=== PATIENT | female | born 1930 | race Asian ===

== ENCOUNTER 2019-01-15 22:16 | Observation (INO) | payer MEDICARE, OTHER ==
[2019-01-16 00:50] LABS: ADD MAN DIFF? NO
[2019-01-16 00:52] LABS: WHITE BLOOD COUNT 9.4 10^3/ul (4.8-10.8)
[2019-01-16 00:52] LABS: BASOPHIL # 0.1 10^3/ul (0.0-0.1); BASOPHILS % 0.7 % (0.0-2.0); EOSINOPHILS # 0.1 10^3/ul (0.0-0.5); HEMATOCRIT 36.8 % (37.0-47.0); HEMOGLOBIN 12.3 g/dl (12.0-16.0); LYMPHOCYTES # 3.6 10^3/ul (0.8-2.9); LYMPHOCYTES % 38.2 % (15.0-51.0); MEAN CORPUSCULAR HEMOGLOBIN 28.5 pg (29.0-33.0); MEAN CORPUSCULAR HGB CONC 33.4 g/dl (32.0-37.0); MEAN CORPUSCULAR VOLUME 85.2 fl (82.0-101.0); MEAN PLATELET VOLUME 10.6 fl (7.4-10.4); MONOCYTE # 0.6 10^3/ul (0.3-0.9); MONOCYTES % 6.7 % (0.0-11.0); NEUTROPHILS % 53.1 % (39.0-77.0); PLATELET COUNT 281 10^3/UL (140-415); RED BLOOD COUNT 4.32 10^6/ul (4.20-5.40)
[2019-01-16 01:17] LABS: ANION GAP 11 (5-13); BLOOD UREA NITROGEN 19 mg/dl (7-20); CALCIUM 9.6 mg/dl (8.4-10.2); CARBON DIOXIDE 26 mmol/L (21-31); CHLORIDE 100 mmol/L (97-110); CREATINE KINASE 83 IU/L (23-200); CREATININE 0.74 mg/dl (0.44-1.00); GLUCOSE 110 mg/dl (70-220); MAGNESIUM 1.9 mg/dl (1.7-2.5); POTASSIUM 4.3 mmol/L (3.5-5.1); SODIUM 137 mmol/L (135-144)
[2019-01-16 01:22] LABS: INR 0.84; PARTIAL THROMBOPLASTIN TIME 25.5 Sec (23.0-35.0); PROTIME 11.6 Sec (11.9-14.9); PT RATIO 0.9
[2019-01-16 01:29] LABS: TROPONIN-I < 0.012 ng/ml (0.000-0.120)
[2019-01-16 01:34] LABS: FREE THYROXINE INDEX (Calc) 2.85 ug/ml (0.65-3.89); T3 UPTAKE 33.9 % (23.5-40.5); T4 (THYROXINE) 8.4 ug/dl (5.5-11.0)
[2019-01-16] MEDS ORDERED: NACL 0.9% 3 ML SYG IV (08:00)
[2019-01-16] MEDS ORDERED: ACETAMINOPHEN 325 MG TAB PO (08:00)
[2019-01-16] MEDS ORDERED: NITROGLYCERIN (SL) 0.4 MG TAB SL (08:00)
[2019-01-16] MEDS ORDERED: ALBUTEROL/IPRATROPIUM (NEB) 3 ML AMP HHN (08:00)
[2019-01-16] MEDS: ASPIRIN (EC) 81 MG TAB PO (09:11)
[2019-01-16] MEDS: PANTOPRAZOLE (EC) 40 MG TAB PO (09:11)
[2019-01-16] MEDS: FERROUS SULFATE (EC) 325 MG TAB PO (09:11)
[2019-01-16] MEDS: CYANOCOBALAMIN 500 MCG TAB PO (09:11)
[2019-01-16] MEDS: LORATADINE 10 MG TAB PO (09:11)
[2019-01-16 09:35] LABS: CREATINE KINASE 81 IU/L (23-200)
[2019-01-16 09:46] LABS: CK INDEX 2.2
[2019-01-16 09:48] LABS: TROPONIN-I < 0.012 ng/ml (0.000-0.120)
[2019-01-16 10:16] LABS: CK-MB 1.76 ng/ml (0.0-2.4)
[2019-01-16] MEDS: BENAZEPRIL 20 MG TAB PO (12:56)
[2019-01-16] MEDS: metFORMIN (XR) 500 MG TAB PO ×2 (12:56→20:36)
[2019-01-16] MEDS ORDERED: LISINOPRIL 10 MG TAB PO (15:00)
[2019-01-16 15:14] LABS: CREATINE KINASE 82 IU/L (23-200)
[2019-01-16 15:25] LABS: CK INDEX 1.9; CK-MB 1.54 ng/ml (0.0-2.4); TROPONIN-I < 0.012 ng/ml (0.000-0.120)
[2019-01-16] MEDS: ATORVASTATIN 20 MG TAB PO (20:35)
[2019-01-17 06:57] LABS: ADD MAN DIFF? NO; BASOPHIL # 0.1 10^3/ul (0.0-0.1); BASOPHILS % 0.7 % (0.0-2.0); EOSINOPHILS # 0.2 10^3/ul (0.0-0.5); EOSINOPHILS % 1.8 % (0.0-7.0); HEMATOCRIT 40.2 % (37.0-47.0); HEMOGLOBIN 13.3 g/dl (12.0-16.0); LYMPHOCYTES # 3.9 10^3/ul (0.8-2.9); LYMPHOCYTES % 44.5 % (15.0-51.0); MEAN CORPUSCULAR HGB CONC 33.1 g/dl (32.0-37.0); MEAN CORPUSCULAR VOLUME 84.6 fl (82.0-101.0); MONOCYTE # 0.5 10^3/ul (0.3-0.9); MONOCYTES % 6.1 % (0.0-11.0); NEUTROPHIL # 4.1 10^3/ul (1.6-7.5); NEUTROPHILS % 46.7 % (39.0-77.0); PLATELET COUNT 293 10^3/UL (140-415); RED BLOOD COUNT 4.75 10^6/ul (4.20-5.40)
[2019-01-17 06:57] LABS: WHITE BLOOD COUNT 8.8 10^3/ul (4.8-10.8)
[2019-01-17 07:14] LABS: HEMOGLOBIN A1C 7.4 % (0-5.9)
[2019-01-17 07:27] LABS: ALANINE AMINOTRANSFERASE 22 IU/L (13-69); ALBUMIN 4.4 g/dl (3.3-4.9); ALBUMIN/GLOBULIN RATIO 1.37; ALKALINE PHOSPHATASE 62 IU/L (42-121); ANION GAP 15 (5-13); ASPARTATE AMINO TRANSFERASE 30 IU/L (15-46); BILIRUBIN,INDIRECT 0.4 mg/dl (0-1.1); BILIRUBIN,TOTAL 0.4 mg/dl (0.2-1.3); BLOOD UREA NITROGEN 18 mg/dl (7-20); CALCIUM 9.6 mg/dl (8.4-10.2); CARBON DIOXIDE 23 mmol/L (21-31); CHLORIDE 99 mmol/L (97-110); CHOL/HDL RATIO 3.4 RATIO; CHOLESTEROL 186 mg/dl (100-200); CREATININE 0.68 mg/dl (0.44-1.00); GLUCOSE 184 mg/dl (70-220); HDL CHOLESTEROL 54 mg/dl (33-92); LDL CHOLESTEROL,CALCULATED 74 mg/dl; MAGNESIUM 1.7 mg/dl (1.7-2.5); POTASSIUM 4.4 mmol/L (3.5-5.1); SODIUM 137 mmol/L (135-144); TOTAL PROTEIN 7.6 g/dl (6.1-8.1); TRIGLYCERIDES 291 mg/dl (0-149)
[2019-01-17 07:27] LABS: TROPONIN-I < 0.012 ng/ml (0.000-0.120)
[2019-01-17] MEDS: PANTOPRAZOLE (EC) 40 MG TAB PO (08:47)
[2019-01-17] MEDS: CYANOCOBALAMIN 500 MCG TAB PO (08:47)
[2019-01-17] MEDS: FERROUS SULFATE (EC) 325 MG TAB PO (08:47)
[2019-01-17] MEDS: TIZANIDINE 4 MG TAB PO (08:47)
[2019-01-17] MEDS: ASPIRIN (EC) 81 MG TAB PO (08:47)
[2019-01-17] MEDS: metFORMIN (XR) 500 MG TAB PO (08:48)
[2019-01-17] MEDS: BENAZEPRIL 20 MG TAB PO (08:48)
[2019-01-17] MEDS: LORATADINE 10 MG TAB PO (08:51)
[2019-01-17] MEDS: POLYETHYLENE GLYCOL 17 GM PACKET GTB (10:51)
== END 2019-01-17 16:10 | disposition home or self-care (01) ==
LOC: E/R 22:16 → TEL 01-16 03:44
PROVIDERS: Internal Medicine
DX: R55 Syncope and collapse (principal); E11.9 Type 2 diabetes mellitus without complications; I10 Essential (primary) hypertension; E78.5 Hyperlipidemia, unspecified; R91.1 Solitary pulmonary nodule; Z79.4 Long term (current) use of insulin; Z79.84 Long term (current) use of oral hypoglycemic drugs
CPT/HCPCS: 36415; 70450; 71045; 71250; 80048; 80053; 80061; 82550; 82553; 82962; 83036; 83735; 84436; 84443; 84479; 84484; 85025; 85610; 85730; 93005; 93306; 93880; 97161; 99285-25; G0378

== ENCOUNTER 2019-04-21 10:49 | Emergency (ER) | payer MEDICARE ==
[2019-04-21 14:06] LABS: URINE BLOOD (Dip) POC Negative (NEGATIVE); URINE GLUCOSE (Dip) POC Negative (NEGATIVE); URINE KETONES (Dip) POC Negative (NEGATIVE); URINE LEUKOCYTE EST (Dip) POC Negative (NEGATIVE); URINE NITRITE (Dip) POC Negative (NEGATIVE); URINE TOTAL PROTEIN POC Trace (NEGATIVE)
[2019-04-21 14:07] LABS: ADD MAN DIFF? NO
[2019-04-21 14:14] LABS: WHITE BLOOD COUNT 7.8 10^3/ul (4.8-10.8)
[2019-04-21 14:14] LABS: BASOPHILS % 0.5 % (0.0-2.0); EOSINOPHILS # 0.1 10^3/ul (0.0-0.5); EOSINOPHILS % 1.7 % (0.0-7.0); HEMATOCRIT 40.6 % (37.0-47.0); HEMOGLOBIN 13.5 g/dl (12.0-16.0); LYMPHOCYTES # 2.7 10^3/ul (0.8-2.9); LYMPHOCYTES % 33.8 % (15.0-51.0); MEAN CORPUSCULAR HEMOGLOBIN 29.5 pg (29.0-33.0); MEAN CORPUSCULAR HGB CONC 33.3 g/dl (32.0-37.0); MEAN CORPUSCULAR VOLUME 88.8 fl (82.0-101.0); MEAN PLATELET VOLUME 10.1 fl (7.4-10.4); MONOCYTE # 0.7 10^3/ul (0.3-0.9); MONOCYTES % 8.8 % (0.0-11.0); NEUTROPHIL # 4.3 10^3/ul (1.6-7.5); NEUTROPHILS % 55.1 % (39.0-77.0); PLATELET COUNT 315 10^3/UL (140-415); RED BLOOD COUNT 4.57 10^6/ul (4.20-5.40); RED CELL DISTRIBUTION WIDTH 12.4 % (11.5-14.5)
[2019-04-21] MEDS: LIDOCAINE/MYLANTA 40 ML BTL PO (14:23)
[2019-04-21 14:27] LABS: ALANINE AMINOTRANSFERASE 12 IU/L (13-69); ALBUMIN 4.5 g/dl (3.3-4.9); ALBUMIN/GLOBULIN RATIO 1.15; ALKALINE PHOSPHATASE 67 IU/L (42-121); ANION GAP 12 (5-13); ASPARTATE AMINO TRANSFERASE 30 IU/L (15-46); BLOOD UREA NITROGEN 10 mg/dl (7-20); CALCIUM 9.2 mg/dl (8.4-10.2); CARBON DIOXIDE 24 mmol/L (21-31); CHLORIDE 100 mmol/L (97-110); CREATININE 0.78 mg/dl (0.44-1.00); GLUCOSE 126 mg/dl (70-220); LIPASE 120 U/L (23-300); POTASSIUM 4.1 mmol/L (3.5-5.1); SODIUM 136 mmol/L (135-144); TOTAL PROTEIN 8.4 g/dl (6.1-8.1)
[2019-04-21 14:37] LABS: TROPONIN-I < 0.012 ng/ml (0.000-0.120)
== END 2019-04-21 16:27 | disposition home or self-care (01) ==
LOC: E/R 10:49
DX: R10.13 Epigastric pain (principal); K59.00 Constipation, unspecified; I10 Essential (primary) hypertension; E11.9 Type 2 diabetes mellitus without complications; I25.10 Atherosclerotic heart disease of native coronary artery without angina pectoris; Z79.82 Long term (current) use of aspirin; Z79.84 Long term (current) use of oral hypoglycemic drugs
CPT/HCPCS: 36415; 80053; 81003; 83690; 84484; 85025; 93005; 99284-25